=== PATIENT | female | born 1970 | race Two or more races ===

== ENCOUNTER 2024-04-11 08:37 | Outpatient (RCR) | payer BC, MEDICAID, SELFPAY ==
[2024-04-09 14:55] LABS: Basophils % (Auto) 0 % (0-2.5); Eosinophils # (Auto) 0.1 Thou/mm3 (0.0-0.5); Eosinophils % (Auto) 1 % (0-10); Hematocrit 34.9 % (36.0-46.0); Hemoglobin 11.9 g/dL (12.0-16.0); Immature Granulocytes % (Auto) 0 % (0-0); Immature Granulocytes Auto 0.02 Thou/mm3 (0.00-0.00); Lymphocytes # (Auto) 2.3 Thou/mm3 (1.0-4.8); Lymphocytes % (Auto) 34 % (10-50); Mean Corpuscular HGB Conc 34.1 g/dl (31.0-37.0); Mean Corpuscular Hemoglobin 31.4 pg (25.0-35.0); Mean Corpuscular Volume 92 fL (80-100); Monocytes # (Auto) 0.6 Thou/mm3 (0.0-0.8); Monocytes % (Auto) 9 % (0-12); Neutrophils # (Auto) 3.8 Thou/mm3 (1.8-7.7); Neutrophils % (Auto) 56 % (37-80); Nucleated Red Blood Cell % 0 /100 WBC (0); Platelet Count 232 Thou/mm3 (140-440); RDW Standard Deviation 42.6 fL (36.4-46.3); Red Blood Count 3.79 Miln/mm3 (4.00-5.20); White Blood Count 6.9 Thou/mm3 (3.6-11.0)
[2024-04-09 15:33] LABS: Alanine Aminotransferase 32 U/L (10-49); Albumin, Serum 4.7 gm/dL (3.5-5.0); Albumin/Globulin Ratio 1.7 (1.2-2.2); Alkaline Phosphatase 119 U/L (46-116); Anion Gap 10 (7-16); Aspartate Amino Transferase 25 U/L (0-34); BUN/Creatinine Ratio 17 Ratio (12-20); Bilirubin,Total 0.4 mg/dL (0.3-1.2); Blood Urea Nitrogen 19 mg/dL (9-23); Calcium 9.6 mg/dL (8.3-10.6); Calcium (Corrected) 9.6 mg/dL (8.5-10.1); Carbon Dioxide 25.8 mMol/L (20.0-31.0); Chloride 103 mMol/L (98-107); Creatinine (Component) 1.1 mg/dL (0.6-1.3); Globulin 2.7 gm/dL (2.3-3.5); Glucose 116 mg/dL (74-106); Osmolality,Calculated 280 (275-295); Potassium 3.6 mMol/L (3.4-5.1); Sodium 139 mMol/L (136-145); Total Protein 7.4 gm/dL (5.7-8.2); eGFR > 60 See Note
[2024-04-09 15:40] LABS: Folate 14.28 ng/mL (>5.38); Vitamin B12 575 pg/mL (211-911)
[2024-04-09 15:50] LABS: Ferritin 64 ng/mL (7.3-270.7); Iron 62 mcg/dL (50-170); Percent Iron Saturation 18 % (20-55); Total Iron Binding Capacity 333 mcg/dL (250-425); Unsaturated Iron Binding 271 (225-295)
[2024-04-09 15:54] LABS: CA 15-3 11.6 U/mL (<32.4); Carcinoembryonic Antigen 0.7 ng/mL (0.0-5.0)
--- NOTE | 2024-04-15 23:16 | CTCFLWUP_ITS ---
Patient: RAMU DISLA : 1970 Page 7 of 9 FOLLOW UP NOTE DATE OF SERVICE: 04/10/2024 NAME: RAMU DISLA ACCOUNT: [id number] : 1970 AGE: 53 INTERVAL HISTORY: Left breast ultrasound done on 12/13/2023 was BI-RADS Category 2 benign findings, no solid nodules. P atient taking anastrozole, reports mild occasional body aches, tolerable. Patient reports good appeti te and energy levels. Patient also taking Fosamax 35 mg weekly and calcium twice a day for osteopenia. Patient denies cough chest pain abdominal pain leg cramps weight loss. 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 S/p left breast biopsy (04/01/2021) S/p 6 cycles of neoadjuvant TCH chemotherapy (06/16/2021 - 09/29/2021) S/p lumpectomy and sentinel lymph node biopsy (11/09/2021). ypT1c, snN1mi. S/p adjuvant radiation therapy to the left breast (12/06/2021 - 01/25/2022) Completed adjuvant Ado-Tras tuzumab Emtansine (Kadcyla) (12/09/2021-09/01/2022). Last menstrual period 03/31/2021. Tamoxifen started on (11/17/2021-05/30/2023). Anastrozole started on (05/30/2023- ) Hypertension. DATE OF DIAGNOSIS: 04/01/2021 Left breast ultrasound done on 12/13/2023 was BI-RADS Category 2 benign findings, no solid nodules. Pa tient taking anastrozole, reports mild occasional body aches, tolerable. Patient reports good appetit e and energy levels. Patient also taking Fosamax 35 mg weekly and calcium twice a day for osteopenia. Patient denies cough chest pain abdominal pain leg cramps weight loss. STAGE/TNM: TREATMENT HISTORY: Care?Plan Start?Date Cycle Day Intent TCH?1 06/15/2021 1 21 Curative?(adjuvant) KADCYLA?adjuvant 12/09/2021 1 21 Curative?(adjuvant) HISTORY OF PRESENT ILLNESS: PREVIOUS NOTE: Ramu Disla is a 53-year-old S[place] speaking female with history of hypertensio n has the following oncology history. 04/28/2017: Mammograms? 07/04/2018: bilateral screening mammograms? 11/13/2019: Bilateral screening mammograms? 12/17/2019: Left breast ultrasound? 01/16/2020: Ultrasound-guided percutaneous left breast biopsy, left axillary mass 03/05/2021: Bilateral screening mammograms? 05/06/2021: Ultrasound-guided percutaneous left axillary biopsy 05/07/2021: CT scan of the chest abdomen and pelvis with IV contrast 05/07/2021: CT scan of the chest abdomen and pelvis with IV contrast 05/10/2021: MRI scan of the thoracic as well as lumbar spine with and without contrast negative for me tastatic disease. 05/14/2021: Left breast ultrasound? 06/16/2021?09/29/2021: Ms. Disla was treated with 6 cycles of neoadjuvant TCH chemotherapy. 11/09/2021: Ms. Disla had partial mastectomy and sentinel lymph node biopsy. 02/01/2022 US Left Breast: Round cyst 4 x 4mm 12/23/2022: DEXA 01/05/2023: Left breast ultrasound Findings: 2:00 cyst 4 x 3 mm 2:00 cyst 3 x 3 mm Scar formation 2:00 position left breast IMPRESSION: BI-RADS Category 2: Benign findings 01/05/2023 left breast diagnostic mammogram Impression: BI-RADS Category 3: Probably benign findings Recommend 1 additional 6 month left mammogram follow-up 02/13/2023: Hemoglobin 12.5, MCV 90, ANC 3.9, platelet count 170,000, WBC 6.3 CEA<0.5, CA 15?3 is 14. 80 05/26/2023: CEA 0.8, CA 15?3 is 16.2 04/05/2023: Colonoscopy screening Normal, repeat in 10 years 06/21/2023: MRI breast bilateral with and without contrast 07/26/2023: Left breast ultrasound Findings: 2:00 cyst 4 x 7 mm 2:00 cyst 6 x 4 mm 2:00 intramammary lymph node 8 x 6 mm Impression: BI-RADS Category 2: Benign findings 08/04/2023: CEA is<0.5 and CA 15-3 is 14.9 12/06/2023: CEA is<0.5 and CA 15-3 is 15.2 12/13/2023: Left breast [id number] Category 2, benign findings, no solid nodules. 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 alendronate - 35 mg 1 tab Weekly 2. anastrozole - 1 mg 1 tab 1 tab po q daily 3. Citracal + D Slow Release - 600 mg-12.5 mcg (500 unit) 1 tab one tab po twice a day 4. lisinopril-hydrochlorothiazide - 20-12.5 mg 1 tab Daily Medications Last Reconciled by Na Farris MA on 04/10/2024 ALLERGIES: REVIEW OF SYSTEMS: A complete 14-point review of systems was performed and is negative except as noted in interval histo ry. PHYSICAL EXAMINATION: VITAL SIGNS: Temperature?98.2, B/P?149/80, Oxygen?Saturation?97% Weight?154?lbs (Change?since?04/09/24 :?4.6?lbs) PAIN: 0 - No pain ECOG Performance Status: 0 - Asymptomatic and fully active GENERAL APPEARANCE: Appears well, in no apparent distress, appropriately interactive. HEENT: Normocephalic, no temporal wasting, normal conjunctiva, no scleral icterus, normal hearing, li ps without lesions, neck normal range of motion. CARDIOVASCULAR: Not assessed. PULMONARY: Normal respiratory effort, no respiratory distress or use of accessory muscles, speaking i n full sentences, no tachypnea. EXTREMITIES: No pedal edema or cyanosis. SKIN: Normal skin appearance. NEUROLOGIC: Alert and oriented x4. PSHYCHIATRIC: Appropriate affect, mood normal, behavior normal, intact thought and speech. LABORATORY DATA: I have personally reviewed and interpreted each of the patient?s relevant lab tests, abnormal finding s are below: Date 04/09/24 ??GLUCOSE,RANDOM?(mg/dL) 116?H ??BLOOD?UREA?NITROGEN?(mg/dL) 19 ??CREATININE?(mg/dL) 1.10 ??SODIUM?(mmol/L) 139 ??POTASSIUM?(mmol/L) 3.6 ??CHLORIDE?(mmol/L) 103 ??CrCl?(CandG)?(ml/min) 54.81 ??AST/SGOT?(Unit/L) 25 ??ALT/SGPT?(Unit/L) 32 ??ALKALINE?PHOSPHATASE?(Unit/L) 119?H ??BILIRUBIN,?TOTAL?(mg/dL) 0.4 ??PROTEIN?TOTAL?(gm/dl) 7.4 ??ALBUMIN,?SERUM?(gm/dl) 4.7 ??GLOBULIN?(gm/dl) 2.7 ??ALBUMIN/GLOBULIN?RATIO 1.7 ??CALCIUM,?SERUM?(mg/dL) 9.6 ??CALCIUM?SERUM?(CORRECTED)?(mg/dL) 9.6 ASSESSMENT/PLAN: #1. 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 S/p left breast biopsy (04/01/2021) S/p 6 cycles of neoadjuvant TCH chemotherapy (06/16/2021 - 09/29/2021) S/p lumpectomy and sentinel lymph node biopsy (11/09/2021). ypT1c, snN1mi. S/p adjuvant radiation therapy to the left breast (12/06/2021 - 01/25/2022) PET/CT scan negative for me tastatic disease, 05/14/2021. Completed adjuvant Ado-Trastuzumab Emtansine (Kadcyla) (12/09/2021-09/01/2022). Last menstrual period 03/31/2021. Tamoxifen started on (11/17/2021-05/30/2023). Anastrozole started on (05/30/2023- ) Left breast ultrasound benign findings, 12/13/2023. Continue anastrozole Ordered bilateral breast mammogram screening. CEA, CA 15-3 prior to next follow-up appointment #2. Osteopenia, DEXA done on 12/23/2022, Continue Fosamax 35 mg weekly and calcium twice daily. #3. History of anemia, resolved. Hemoglobin 12.6, MCV 92, iron saturation 20%, 12/06/2023. No recent labs, CBC CMP iron panel ferritin B12 folate prior to next follow-up appointment. #4. Hypertension, asymptomatic. Continue following up with PCP for management #5. Colon cancer screen Colonoscopy screening, 4, normal, repeat in 10 years. #6. History of hyperlipidemia and elevated LFTS, f/u with PCP for management ORDERS: Pet/ct,ca15-3,estradiol,lymphedema RETURN TO CLINIC: 6 weeks BILLING AND COMPLIANCE: I reviewed external records from providers outside my specialty as summarized above. I spent a total of 50 minutes on this patient?s care on the day of their visit excluding time spent related to any bi lled procedures. This time includes time spent with the patient as well as time spent documenting in the medical record, reviewing patients records and tests, obtaining history, placing orders, communi cating with other healthcare professionals, counseling the patient, family or caregiver, and/or care coordination for the diagnoses above. Electronically Signed by: Emanuel Leonardo MD T: 11:14 PM CC: PCP: Tristan Snyder Referring: Tristan Snyder This document was completed utilizing speech recognition software. Grammatical errors, random word in sertions, pronoun errors, and incomplete sentences are an occasional consequence of this system due t o software limitations, ambient noise, and hardware issues. Any formal questions or concerns about th e content, text or information contained within the body of this dictation should be directly address ed to the provider for clarification.
[2024-04-17 06:25] LABS: Luteinizing Hormone* 47.5 mIU/mL
[2024-05-03 06:35] LABS: Estradiol, Free <0.04 pg/mL; Estradiol, Total <2 pg/mL
== END 2024-04-26 23:59 | disposition home or self-care (01) ==
LOC: SCTC 08:37
PROVIDERS: PCP Family Medicine; Referring Provider Family Medicine; Visit Provider Internal Medicine Hematology & Oncology
DX: C50.412 Malignant neoplasm of upper-outer quadrant of left female breast (principal); Z17.0 Estrogen receptor positive status [ER+]; Z17.21 Progesterone receptor positive status; Z17.32 Human epidermal growth factor receptor 2 negative status; Z90.12 Acquired absence of left breast and nipple; Z92.3 Personal history of irradiation; Z79.811 Long term (current) use of aromatase inhibitors; M85.89 Other specified disorders of bone density and structure, multiple sites; Z79.83 Long term (current) use of bisphosphonates; I10 Essential (primary) hypertension; Z86.2 Personal history of diseases of the blood and blood-forming organs and certain disorders involving the immune mechanism; E78.5 Hyperlipidemia, unspecified
CPT/HCPCS: 36591; 80053; 82378; 82607; 82670; 82681; 82728; 82746; 83001; 83002; 83540; 83550; 85025; 86300; 99212; A4216; J1642; G0463

== ENCOUNTER → 2024-05-02 | Outpatient (CLI) | payer BC, MEDICAID, SELFPAY ==
--- NOTE | 2024-05-02 14:00 | XR_ITS ---
EXAMINATION: PET/CT FUSION SKULL TO THIGH EXAM DATE AND TIME: May 02, [address] abdomen pelvis April 28, 2022 INDICATIONS: Diagnosis malignant neoplasm breast, post treatment restaging CTDI:vol (mGy) 3.81, DLP: (mGycm) 348.39 PROCEDURE: 16.06 mCi FDG was administered intravenously To allow for distribution and uptake of radiotracer, the patient was allowed to rest quietly in a shielded room. Imaging was performed on an integrated 16-slice PET/CT scanner, with scanning from the skull base to the mid thigh. Serum blood glucose at the time of the injection was measured 98 mg/dL. CT scanning was performed without oral or intravenous contrast material. FINDINGS: Head and Neck: There is no tess hypermetabolism in the neck. The visualized portions of the brain are normal in appearance on CT. Chest: There is no tess hypermetabolism in the chest. There are no pulmonary nodules. Posttreatment changes left breast Abdomen and Pelvis: There is no tess hypermetabolism in retroperitoneal or pelvic chains. The spleen is normal in size and FDG avidity. Musculoskeletal: Marrow uptake is within normal range. IMPRESSION: No findings of metastatic disease
== END | disposition home or self-care (01) ==
LOC: CDIM 13:44
PROVIDERS: PCP Family Medicine; Referring Provider Internal Medicine Hematology & Oncology; Visit Provider Internal Medicine Hematology & Oncology
DX: C50.112 Malignant neoplasm of central portion of left female breast (principal)
CPT/HCPCS: 78815; A9552

== ENCOUNTER 2024-05-24 10:21 | Outpatient (RCR) | payer BC, MEDICAID, SELFPAY ==
--- NOTE | 2024-05-27 00:37 | CTCFLWUP_ITS ---
Patient: RAMU DISLA : 1970 Page 7 of 8 FOLLOW UP NOTE DATE OF SERVICE: 05/24/2024 NAME: RAMU DISLA ACCOUNT: [id number] : 1970 AGE: 53 INTERVAL HISTORY:Left breast ultrasound done on 12/13/2023 was BI-RADS Category 2 benign findings, no solid nodules. Patient taking anastrozole, reports mild occasional body aches, tolerable. Patient reports good appetite and energy levels. Patient also taking Fosamax 35 mg weekly and calcium twice a day for osteopenia. Patient denies cough chest pain abdominal pain leg cramps weight loss. Left breast ultrasound done on 12/13/2023 was BI-RADS Category 2 benign findings, no solid nodules. Patient taking anastrozole, reports mild occasional body aches, tolerable. Patient reports good appetite and energy levels. Patient also taking Fosamax 35 mg weekly and calcium twice a day for osteopenia. Patient denies cough chest pain abdominal pain leg cramps weight loss. 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 S/p left breast biopsy (04/01/2021) S/p 6 cycles of neoadjuvant TCH chemotherapy (06/16/2021 - 09/29/2021) S/p lumpectomy and sentinel lymph node biopsy (11/09/2021). ypT1c, snN1mi. S/p adjuvant radiation therapy to the left breast (12/06/2021 - 01/25/2022) Completed adjuvant Ado-Trastuzumab Emtansine (Kadcyla) (12/09/2021-09/01/2022). Last menstrual period 03/31/2021. Tamoxifen started on (11/17/2021-05/30/2023). Anastrozole started on (05/30/2023- ) Hypertension. DATE OF DIAGNOSIS: 04/01/2021 Left breast ultrasound done on 12/13/2023 was BI-RADS Category 2 benign findings, no solid nodules. Patient taking anastrozole, reports mild occasional body aches, tolerable. Patient reports good appetite and energy levels. Patient also taking Fosamax 35 mg weekly and calcium twice a day for osteopenia. Patient denies cough chest pain abdominal pain leg cramps weight loss. STAGE/TNM: TREATMENT HISTORY: Care?Plan Start?Date Cycle Day Intent TCH?1 06/15/2021 1 21 Curative?(adjuvant) KADCYLA?adjuvant 12/09/2021 1 21 Curative?(adjuvant) Zoledronic?Acid?4?mg?adjuvant 05/24/2024 1 180 Palliative HISTORY OF PRESENT ILLNESS: PREVIOUS NOTE: Ramu Disla is a 53-year-old [place] speaking female with history of hypertension has the following oncology history. 04/28/2017: Mammograms? 07/04/2018: bilateral screening mammograms? 11/13/2019: Bilateral screening mammograms? 12/17/2019: Left breast ultrasound? 01/16/2020: Ultrasound-guided percutaneous left breast biopsy, left axillary mass 03/05/2021: Bilateral screening mammograms? 05/06/2021: Ultrasound-guided percutaneous left axillary biopsy 05/07/2021: CT scan of the chest abdomen and pelvis with IV contrast 05/07/2021: CT scan of the chest abdomen and pelvis with IV contrast 05/10/2021: MRI scan of the thoracic as well as lumbar spine with and without contrast negative for metastatic disease. 05/14/2021: Left breast ultrasound? 06/16/2021?09/29/2021: Ms. iDsla was treated with 6 cycles of neoadjuvant TCH chemotherapy. 11/09/2021: Ms. Disla had partial mastectomy and sentinel lymph node biopsy. 02/01/2022 US Left Breast: Round cyst 4 x 4mm 12/23/2022: DEXA 01/05/2023: Left breast ultrasound Findings: 2:00 cyst 4 x 3 mm 2:00 cyst 3 x 3 mm Scar formation 2:00 position left breast IMPRESSION: BI-RADS Category 2: Benign findings 01/05/2023 left breast diagnostic mammogram Impression: BI-RADS Category 3: Probably benign findings Recommend 1 additional 6 month left mammogram follow-up 02/13/2023: Hemoglobin 12.5, MCV 90, ANC 3.9, platelet count 170,000, WBC 6.3 CEA<0.5, CA 15?3 is 14.80 05/26/2023: CEA 0.8, CA 15?3 is 16.2 04/05/2023: Colonoscopy screening Normal, repeat in 10 years 06/21/2023: MRI breast bilateral with and without contrast 07/26/2023: Left breast ultrasound Findings: 2:00 cyst 4 x 7 mm 2:00 cyst 6 x 4 mm 2:00 intramammary lymph node 8 x 6 mm Impression: BI-RADS Category 2: Benign findings 08/04/2023: CEA is<0.5 and CA 15-3 is 14.9 12/06/2023: CEA is<0.5 and CA 15-3 is 15.2 12/13/2023: Left breast [id number] Category 2, benign findings, no solid nodules. 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 alendronate - 35 mg 1 tab Weekly 2. anastrozole - 1 mg 1 tab 1 tab po q daily 3. Citracal + D Slow Release - 600 mg-12.5 mcg (500 unit) 1 tab one tab po twice a day 4. lisinopril-hydrochlorothiazide - 20-12.5 mg 1 tab Daily Medications Last Reconciled by Ramu Baird MD on 05/24/2024 ALLERGIES: REVIEW OF SYSTEMS: A complete 14-point review of systems was performed and is negative except as noted in interval history. PHYSICAL EXAMINATION: VITAL SIGNS: Temperature?99.6, B/P?155/79, Oxygen?Saturation?96% Weight?142?lbs PAIN: 0 - No pain GENERAL APPEARANCE: Appears well, in no apparent distress, appropriately interactive. HEENT: Normocephalic, no temporal wasting, normal conjunctiva, no scleral icterus, normal hearing, lips without lesions, neck normal range of motion. CARDIOVASCULAR: Not assessed. PULMONARY: Normal respiratory effort, no respiratory distress or use of accessory muscles, speaking in full sentences, no tachypnea. EXTREMITIES: No pedal edema or cyanosis. SKIN: Normal skin appearance. NEUROLOGIC: Alert and oriented x4. PSHYCHIATRIC: Appropriate affect, mood normal, behavior normal, intact thought and speech. LABORATORY DATA: I have personally reviewed and interpreted each of the patient?s relevant lab tests, abnormal findings are below: Date 04/09/24 ??WHITE?BLOOD?COUNT?(Thou/mm3) 6.9 ??RED?BLOOD?COUNT?(Miln/mm3) 3.79?L ??HEMOGLOBIN?(gm/dl) 11.9?L ??HEMATOCRIT?(%) 34.9?L ??PLATELET?COUNT?(Thou/mm3) 232 ??NEUTROPHILS?%,?AUTO?(%) 56 ??LYMPH?%,?AUTO?(%) 34 ??NEUTROPHILS,?AUTO?(Thou/mm3) 3.8 ASSESSMENT/PLAN: #1. 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 S/p left breast biopsy (04/01/2021) S/p 6 cycles of neoadjuvant TCH chemotherapy (06/16/2021 - 09/29/2021) S/p lumpectomy and sentinel lymph node biopsy (11/09/2021). ypT1c, snN1mi. S/p adjuvant radiation therapy to the left breast (12/06/2021 - 01/25/2022) PET/CT scan negative for metastatic disease, 05/14/2021. Completed adjuvant Ado-Trastuzumab Emtansine (Kadcyla) (12/09/2021-09/01/2022). Last menstrual period 03/31/2021. Tamoxifen started on (11/17/2021-05/30/2023). Anastrozole started on (05/30/2023- ) Left breast ultrasound benign findings, 12/13/2023. Continue anastrozole Ordered bilateral breast mammogram screening. CEA, CA 15-3 prior to next follow-up appointment PET CT scan on 05/02/2024 showed no metastatic disease #2. Osteopenia, DEXA done on 12/23/2022, Continue Fosamax 35 mg weekly and calcium twice daily. #3. History of anemia, resolved. Hemoglobin 12.6, MCV 92, iron saturation 20%, 12/06/2023. No recent labs, CBC CMP iron panel ferritin B12 folate prior to next follow-up appointment. #4. Hypertension, asymptomatic. Continue following up with PCP for management #5. Colon cancer screen Colonoscopy screening, 04/05/2023, normal, repeat in 10 years. #6. History of hyperlipidemia and elevated LFTS, f/u with PCP for management RETURN TO CLINIC: 6 months I will see her back in the clinic in 6 month. BILLING AND COMPLIANCE: I reviewed external records from providers outside my specialty as summarized above. I spent a total of 50 minutes on this patient?s care on the day of their visit excluding time spent related to any billed procedures. This time includes time spent with the patient as well as time spent documenting in the medical record, reviewing patients records and tests, obtaining history, placing orders, communicating with other healthcare professionals, counseling the patient, family or caregiver, and/or care coordination for the diagnoses above. Electronically Signed by: Emanuel Leonardo MD T: 12:35 AM CC: PCP: Tristan Snyder Referring: Tristan Snyder This document was completed utilizing speech recognition software. Grammatical errors, random word insertions, pronoun errors, and incomplete sentences are an occasional consequence of this system due to software limitations, ambient noise, and hardware issues. Any formal questions or concerns about the content, text or information contained within the body of this dictation should be directly addressed to the provider for clarification.
== END 2024-05-24 23:59 | disposition home or self-care (01) ==
LOC: SCTC 10:21
PROVIDERS: PCP Family Medicine; Referring Provider Family Medicine; Visit Provider Internal Medicine Hematology & Oncology
DX: C50.112 Malignant neoplasm of central portion of left female breast (principal); Z17.0 Estrogen receptor positive status [ER+]; Z17.21 Progesterone receptor positive status; Z17.32 Human epidermal growth factor receptor 2 negative status; Z90.12 Acquired absence of left breast and nipple; Z92.21 Personal history of antineoplastic chemotherapy; Z92.3 Personal history of irradiation; Z79.811 Long term (current) use of aromatase inhibitors; M85.89 Other specified disorders of bone density and structure, multiple sites; Z79.83 Long term (current) use of bisphosphonates; I10 Essential (primary) hypertension; E78.5 Hyperlipidemia, unspecified; Z86.2 Personal history of diseases of the blood and blood-forming organs and certain disorders involving the immune mechanism
CPT/HCPCS: 99212; G0463

== ENCOUNTER → 2024-09-03 | Outpatient (CLI) | payer BC, MEDICAID, SELFPAY ==
--- NOTE | 2024-09-03 11:15 | XR_ITS ---
Examination: Breast ultrasound, unilateral, left complete Date and time of exam: September 03, 2024 1048 hours INDICATIONS: Personal history left breast cancer lumpectomy 2021 Technique: Real-time field scale ultrasonographic imaging performed left breast including all 4 quadrants as well as nipple retroareolar and axillary region. Findings: 2:00 cyst 3 x 3 mm No solid nodules Scar formation left breast IMPRESSION: BI-RADS Category 2: Benign findings
--- NOTE | 2024-09-03 11:45 | XR_ITS ---
Examination: Screening digital mammography, bilateral Computer aided detection 3-D breast Tomosynthesis, bilateral Date and time of exam: September 03, 2024 1101 hours Compared to mammograms dating to November 09, 2021 Indication: Screening, personal history left breast cancer Technique: Nonmagnified MLO, CC views of the breasts to been obtained, reconstructed from 3-D Tomosynthesis images. R2 computer aided detection program utilized for evaluation of suspicious masses and/or abnormal calcifications. 3-D Tomosynthesis images obtained. Findings: The breasts are heterogeneously dense, which may obscure small masses Stable scar formation left breast Breast biopsy marker 12:00 position left breast Posttreatment skin thickening left breast unchanged No interval suspicious masses Impression: BI-RADS category II: Benign Findings. Recommend 1 year follow-up mammogram.
== END | disposition home or self-care (01) ==
PROVIDERS: PCP Family Medicine; Referring Provider Nurse Practitioner Family; Visit Provider Nurse Practitioner Family
DX: C50.112 Malignant neoplasm of central portion of left female breast (principal); R92.333 Mammographic heterogeneous density, bilateral breasts; N60.02 Solitary cyst of left breast
CPT/HCPCS: 76641; 77063; 77067

== ENCOUNTER 2024-11-21 08:58 | Outpatient (RCR) | payer BC, MEDICAID, SELFPAY ==
[2024-11-20 12:37] LABS: Basophils # (Auto) 0.0 Thou/mm3 (0.0-0.2); Basophils % (Auto) 1 % (0-2.5); Eosinophils # (Auto) 0.0 Thou/mm3 (0.0-0.5); Eosinophils % (Auto) 1 % (0-10); Hematocrit 37.6 % (36.0-46.0); Hemoglobin 12.9 g/dL (12.0-16.0); Immature Granulocytes Auto 0.03 Thou/mm3 (0.00-0.00); Lymphocytes # (Auto) 2.1 Thou/mm3 (1.0-4.8); Lymphocytes % (Auto) 31 % (10-50); Mean Corpuscular HGB Conc 34.3 g/dl (31.0-37.0); Mean Corpuscular Hemoglobin 31.6 pg (25.0-35.0); Mean Corpuscular Volume 92 fL (80-100); Monocytes # (Auto) 0.6 Thou/mm3 (0.0-0.8); Monocytes % (Auto) 9 % (0-12); Neutrophils # (Auto) 3.8 Thou/mm3 (1.8-7.7); Neutrophils % (Auto) 58 % (37-80); Nucleated Red Blood Cell # 0.00 Thou/mm3 (0.00-0.00); Nucleated Red Blood Cell % 0 /100 WBC (0); Platelet Count 220 Thou/mm3 (140-440); RDW Standard Deviation 41.6 fL (36.4-46.3); Red Blood Count 4.08 Miln/mm3 (4.00-5.20); White Blood Count 6.6 Thou/mm3 (3.6-11.0)
[2024-11-20 12:55] LABS: Alanine Aminotransferase 37 U/L (10-49); Albumin, Serum 4.7 gm/dL (3.5-5.0); Albumin/Globulin Ratio 2.0 (1.2-2.2); Alkaline Phosphatase 120 U/L (46-116); Anion Gap 11 (7-16); Aspartate Amino Transferase 32 U/L (0-34); BUN/Creatinine Ratio 14 Ratio (12-20); Bilirubin,Total 0.5 mg/dL (0.3-1.2); Blood Urea Nitrogen 13 mg/dL (9-23); Calcium 10.3 mg/dL (8.3-10.6); Calcium (Corrected) 10.3 mg/dL (8.5-10.1); Carbon Dioxide 25.4 mMol/L (20.0-31.0); Chloride 105 mMol/L (98-107); Creatinine (Component) 0.9 mg/dL (0.6-1.3); Globulin 2.4 gm/dL (2.3-3.5); Glucose 104 mg/dL (74-106); Osmolality,Calculated 281 (275-295); Potassium 3.2 mMol/L (3.4-5.1); Sodium 141 mMol/L (136-145); Total Protein 7.1 gm/dL (5.7-8.2); eGFR > 60 See Note
[2024-11-20 13:14] LABS: CA 15-3 10.4 U/mL (<32.4); Carcinoembryonic Antigen < 0.5 ng/mL (0.0-5.0)
== END 2024-11-24 23:59 | disposition home or self-care (01) ==
LOC: SCTC 08:58
PROVIDERS: Internal Medicine Hematology & Oncology; PCP Family Medicine; Referring Provider Family Medicine; Visit Provider Nurse Practitioner Family
DX: C50.412 Malignant neoplasm of upper-outer quadrant of left female breast (principal); Z17.0 Estrogen receptor positive status [ER+]; Z17.21 Progesterone receptor positive status; Z17.32 Human epidermal growth factor receptor 2 negative status; Z92.21 Personal history of antineoplastic chemotherapy; Z79.811 Long term (current) use of aromatase inhibitors; Z90.12 Acquired absence of left breast and nipple; Z92.3 Personal history of irradiation; M85.89 Other specified disorders of bone density and structure, multiple sites; Z86.2 Personal history of diseases of the blood and blood-forming organs and certain disorders involving the immune mechanism; I10 Essential (primary) hypertension; E78.5 Hyperlipidemia, unspecified; E87.6 Hypokalemia; R74.8 Abnormal levels of other serum enzymes
CPT/HCPCS: 36591; 80053; 82378; 85025; 86300; 99212; A4216; J1642; G0463

== ENCOUNTER 2025-03-10 15:19 | Outpatient (RCR) | payer BC, MEDICAID, SELFPAY ==
[2025-03-07 09:58] LABS: Basophils # (Auto) 0.0 Thou/mm3 (0.0-0.2); Basophils % (Auto) 0 % (0-2.5); Eosinophils # (Auto) 0.1 Thou/mm3 (0.0-0.5); Eosinophils % (Auto) 1 % (0-10); Hematocrit 36.9 % (36.0-46.0); Hemoglobin 12.4 g/dL (12.0-16.0); Immature Granulocytes Auto 0.02 Thou/mm3 (0.00-0.00); Lymphocytes # (Auto) 1.9 Thou/mm3 (1.0-4.8); Lymphocytes % (Auto) 28 % (10-50); Mean Corpuscular HGB Conc 33.6 g/dl (31.0-37.0); Mean Corpuscular Hemoglobin 30.8 pg (25.0-35.0); Mean Corpuscular Volume 92 fL (80-100); Monocytes # (Auto) 0.5 Thou/mm3 (0.0-0.8); Monocytes % (Auto) 8 % (0-12); Neutrophils # (Auto) 4.2 Thou/mm3 (1.8-7.7); Neutrophils % (Auto) 63 % (37-80); Nucleated Red Blood Cell # 0.00 Thou/mm3 (0.00-0.00); Nucleated Red Blood Cell % 0 /100 WBC (0); Platelet Count 245 Thou/mm3 (140-440); RDW Standard Deviation 41.1 fL (36.4-46.3); Red Blood Count 4.02 Miln/mm3 (4.00-5.20); White Blood Count 6.6 Thou/mm3 (3.6-11.0)
[2025-03-07 10:19] LABS: Alanine Aminotransferase 31 U/L (10-49); Albumin, Serum 5.1 gm/dL (3.5-5.0); Albumin/Globulin Ratio 1.8 (1.2-2.2); Alkaline Phosphatase 130 U/L (46-116); Anion Gap 11 (7-16); Aspartate Amino Transferase 28 U/L (0-34); BUN/Creatinine Ratio 18 Ratio (12-20); Bilirubin,Total 0.6 mg/dL (0.3-1.2); Blood Urea Nitrogen 14 mg/dL (9-23); Calcium 9.7 mg/dL (8.3-10.6); Calcium (Corrected) 9.7 mg/dL (8.5-10.1); Carbon Dioxide 24.7 mMol/L (20.0-31.0); Chloride 104 mMol/L (98-107); Creatinine (Component) 0.8 mg/dL (0.6-1.3); Globulin 2.8 gm/dL (2.3-3.5); Glucose 87 mg/dL (74-106); Osmolality,Calculated 278 (275-295); Potassium 3.6 mMol/L (3.4-5.1); Sodium 140 mMol/L (136-145); Total Protein 7.9 gm/dL (5.7-8.2); eGFR > 60 See Note
[2025-03-07 22:04] LABS: CA 15-3 14.4 U/mL (<32.4); Carcinoembryonic Antigen < 0.5 ng/mL (0.0-5.0)
== END 2025-03-26 23:59 | disposition home or self-care (01) ==
LOC: SCTC 15:19
PROVIDERS: PCP Family Medicine; Referring Provider Family Medicine; Visit Provider Nurse Practitioner Family
DX: C50.412 Malignant neoplasm of upper-outer quadrant of left female breast (principal); Z17.0 Estrogen receptor positive status [ER+]; Z17.21 Progesterone receptor positive status; Z17.32 Human epidermal growth factor receptor 2 negative status; Z79.811 Long term (current) use of aromatase inhibitors; Z92.21 Personal history of antineoplastic chemotherapy; Z90.12 Acquired absence of left breast and nipple; M85.89 Other specified disorders of bone density and structure, multiple sites; I10 Essential (primary) hypertension; E78.5 Hyperlipidemia, unspecified; R74.8 Abnormal levels of other serum enzymes
CPT/HCPCS: 36591; 80053; 82378; 85025; 86300; 99212; A4216; J1642; G0463